=== PATIENT | female | born 1975 ===

== ENCOUNTER 2016-09-11 13:05 | Observation (INO) | payer MEDICAID ==
[2016-09-11] MEDS ORDERED: Sodium Chloride 0.9% 1,000 ML IV STA ×2 (13:51→17:11)
[2016-09-11 14:12] LABS: BASO % 0.3 % (0.0-2.0); EOS # 0.1 K/uL (0.0-0.7); EOS % 0.8 % (0.0-4.0); LYMPH % 12.7 % (20.0-40.0); MEAN CELL VOLUME 70.7 fl (81.0-99.0); MEAN CORPUSCULAR HEMOGLOBIN 22.7 pg (27.0-31.0); MEAN CORPUSCULAR HGB CONC 32.2 g/dL (33.0-37.0); MEAN PLATELET VOLUME 7.7 fl (7.2-11.7); MONO # 0.3 K/uL (0.0-0.8); MONO % 4.4 % (0.0-10.0); NEUT # 6.5 K/uL (1.8-7.0); NEUT % 81.8 % (50.0-75.0); RBC 3.97 Mil/uL (3.80-5.20); RED CELL DISTRIBUTION WIDTH 17.3 % (11.5-14.5)
[2016-09-11 14:26] LABS: ALB/GLOB RATIO 1.4 (1.0-2.1); ALBUMIN 4.7 g/dL (3.5-5.0); ALT/SGPT 51 U/L (9-52); AST/SGOT 27 U/L (14-36); BLOOD UREA NITROGEN 14 mg/dl (7-17); CALCIUM 9.6 mg/dL (8.4-10.2); GFR AFRICAN-AMERICAN > 60; GFR NON-AFRICAN AMERICAN > 60; LIPASE 99 U/L (23-300)
[2016-09-11 14:40] LABS: SQUAMOUS EPITHIAL 3 /hpf (0-5); URINE BACTERIA RARE (<OCC); URINE BILIRUBIN NEGATIVE (NEGATIVE); URINE BLOOD NEGATIVE (NEGATIVE); URINE CLARITY SLIGHTY-CLOUDY (Clear); URINE COLOR YELLOW (YELLOW); URINE GLUCOSE (UA) NEG (Normal); URINE LEUKOCYTE ESTERASE NEG Leu/uL (Negative); URINE NITRATE NEGATIVE (NEGATIVE); URINE PROTEIN 30 mg/dL (NEGATIVE); URINE UROBILINOGEN 0.2-1.0 mg/dL (0.2-1.0)
--- NOTE | 2016-09-11 14:40 | ED PDOC ---
HPI: Abdomen <James Jaimes - Last Filed: 09/11/16 17:17> Chief Complaint (Provider): Vomiting History Per: Patient, Family History/Exam Limitations: no limitations Onset/Duration Of Symptoms: Hrs (symptoms starts this morning) Outside of [place] travel?: No Current Symptoms Are (Timing): Still Present Severity: Mild Pain Scale Rating Of: 1 Location Of Pain/Discomfort: Diffuse Quality Of Discomfort: Other (feel a discomfort) Associated Symptoms: Nausea, Vomiting (describes 9 vomits in total). denies: Fever, Chills, Diarrhea, Back Pain, Chest Pain Exacerbating Factors: None Alleviating Factors: None Additional History Per: Patient, Family Abnormal Vaginal Bleeding: No <Star Benito - Last Filed: 09/11/16 17:39> <Sherry Heart - Last Filed: 09/11/16 17:50> Time Seen by Provider: 09/11/16 13:19 Chief Complaint (Nursing): Abdominal Pain Additional Complaint(s): CC: Vomiting. HPI: 41 yo F patient presents to the ED complaining of vomiting since this morning, she has 9 vomits in total, small, yellowish, without food or blood. Associated nausea, dizziness, generalized malaise and abdominal discomfort. Also refers flu-like symptoms 1 week ago improved. Denies fever, headache, burning sensation, no change in diet, no urinary difficulties. No recent travel outside country, nobody around with similar symptoms. ROS: negative except as HPI. PMH: Chronic anemia. PSH: 2 C- section ( first 2001, second 2003) Allergies: NKA Social: denies smoking, alcohol and drugs. Meds: none. (Star Benito) Supervising Attending Note - Supervising Attending Note The Documented history was done by the: Physician Dozer Operator The documented physical exam was done by the: Physician Dozer Operator The documented procedures were done by the: Physician Dozer Operator - Attestation: I have personally seen and examined this patient.: Yes I have fully participated in the care of the patient.: Yes I have reviewed all pertinent clinical information: Yes <Sherry Heart - Last Filed: 09/11/16 17:50> Past Medical History <James Jaimes - Last Filed: 09/11/16 17:17> Reviewed: Nursing Documentation, Vital Signs - Medical History PMH: Anemia - Surgical History Surgical History: (First on 2001, second 2003.) - Family History Family History: States: No Known Family Hx - Living Arrangements Living Arrangements: With Family - Social History Current smoker - smoking cessation education provided: No Alcohol: None Drugs: Denies <Star Benito - Last Filed: 09/11/16 17:39> <HeartSherry F - Last Filed: 09/11/16 17:50> Vital Signs: Last Vital Signs Temp 99.6 F 09/11/16 17:47 Pulse 78 09/11/16 17:47 Resp 16 09/11/16 17:47 BP 119/56 L 09/11/16 17:47 Pulse Ox 100 09/11/16 17:47 - Home Medications Home Medications: Ambulatory Orders Medication Instructions Recorded No Known Home Med 09/11/16 - Allergies Allergies/Adverse Reactions: Allergies Allergy/AdvReac Type Severity Reaction Status Date / Time No Known Allergies Allergy Verified 09/11/16 13:10 Review of Systems ROS Statement: Except As Marked, All Systems Reviewed And Found Negative Constitutional: Positive for: Weakness, Malaise. Negative for: Fever, Chills Eyes: Negative for: Pain, Vision Change ENT: Positive for: Other. Negative for: Ear Pain, Mouth Pain, Mouth Swelling Cardiovascular: Negative for: Chest Pain, Palpitations, Edema Respiratory: Negative for: Cough, Shortness of Breath Gastrointestinal: Positive for: Nausea, Vomiting, Other (Abdominal discomfort). Negative for: Diarrhea Genitourinary Female: Negative for: Dysuria, Vaginal Discharge, Pelvic Pain Musculoskeletal: Negative for: Neck Pain, Back Pain, Leg Pain Skin: Positive for: Other (normal color) Neurological: Negative for: Weakness, Numbness, Incoordination, Change in Speech , Confusion, Altered Mental Status, Headache Psych: Negative for: Anxiety <Star Benito - Last Filed: 09/11/16 17:39> Physical Exam - Reviewed Nursing Documentation Reviewed: Yes Vital Signs Reviewed: Yes - Physical Exam Appears: Positive for: Well, No Acute Distress Head Exam: Positive for: ATRAUMATIC, NORMOCEPHALIC Skin: Positive for: Normal Color, Warm, Dry. Negative for: Diaphoresis Eye Exam: Positive for: Normal appearance, EOMI, PERRL ENT: Positive for: Normal ENT Inspection Neck: Positive for: Normal, Supple Cardiovascular/Chest: Positive for: Regular Rate, Rhythm. Negative for: Murmur Respiratory: Positive for: Normal Breath Sounds Pulses-Carotid (L): 2+ Pulses-Carotid (R): 2+ Pulses-Dorsalis Pedis (L): 2+ Pulses-Dorsalis Pedis (R): 2+ Pulses-Femoral (L): 2+ Pulses-Femoral (R): 2+ Pulses-Post. Tibialis (L): 2+ Pulses-Post. Tibialis (R): 2+ Pulses-Radial (L): 2+ Pulses-Radial (R): 2+ Gastrointestinal/Abdominal: Positive for: Bowel Sounds, Soft, Other (abdominal discomfort on RUQ). Negative for: Tenderness, Mass, Distended Back: Positive for: Normal Inspection Extremity: Positive for: Normal ROM, Capillary Refill (< 4 seconds.). Negative for: Tenderness, Pedal Edema, Calf Tenderness Neurologic/Psych: Positive for: Alert, algorithm developer II-XII, Oriented <Star Benito - Last Filed: 09/11/16 17:39> - Laboratory Results Result Diagrams: 09/11/16 14:04 09/11/16 14:04 <James Jaimes - Last Filed: 09/11/16 17:17> - Laboratory Results Result Diagrams: 09/11/16 14:04 09/11/16 14:04 Urine POC: Negative - ECG O2 Sat by Pulse Oximetry: 98 <Star Benito - Last Filed: 09/11/16 17:39> - Laboratory Results Result Diagrams: 09/11/16 14:04 09/11/16 14:04 <Sherry Heart - Last Filed: 09/11/16 17:50> - ECG Interpretation Of ECG: NSR @ 79, no ST-T changes. (Sherry Heart) Medical Decision Making <James Jaimes - Last Filed: 09/11/16 17:17> <Star Benito - Last Filed: 09/11/16 17:39> <Sherry Heart - Last Filed: 09/11/16 17:50> Medical Decision Making: Time: 15:00 Impression: 41 yo F patient presents to the ED complaining of vomiting since this morning. Plan: CBC PT PTT test, urine. Urinalysis. Urine dipstick. Abd/pelvis CT scan with contrast. IV NS. Metoclopramide IV. Zofran IV. Time 16:50 Impression: Reevaluated patient refers continuing vomiting, nausea and epigastric discomfort. Abdominal CAT Scan is normal. Plan: IV NS. Phenergan IV. EKG. CXR. Admit patient in observation. (Star Benito) Disposition - Patient ED Disposition Is Patient to be Admitted: Yes <James Jaimes - Last Filed: 09/11/16 17:17> Discussed With : Ashlee Navarro Doctor Will See Patient In The: Hospital - Disposition Disposition Time: 17:24 - Pt Status Changed To: Hospital Disposition Of: Observation - POA Present On Arrival: None <Star Benito - Last Filed: 09/11/16 17:39> <Sherry Heart - Last Filed: 09/11/16 17:50> - Clinical Impression Clinical Impression: Intractable cyclical vomiting with nausea - Disposition Condition: STABLE
[2016-09-11 14:54] LABS: PARTIAL THROMBOPLASTIN TIME 25.4 Seconds (25.6-37.1); PROTHROMBIN TIME 11.6 Seconds (9.8-13.1)
[2016-09-11] MEDS ORDERED: Iohexol 300 100 ML IJ ONE (15:57)
[2016-09-11] MEDS ORDERED: Sodium Chloride 0.9% 50 ML IV ONE (15:57)
--- NOTE | 2016-09-11 16:43 | CT ---
PROCEDURE: CT Abdomen and Pelvis with contrast HISTORY: LLQ pain. By history, negative test (concurrent with this examination). COMPARISON: None. TECHNIQUE: Contrast dose: 90 cc Omnipaque 300 Radiation dose: Total exam DLP = 540.41 mGy-cm. This CT exam was performed using one or more of the following dose reduction techniques: Automated exposure control, adjustment of the mA and/or kV according to patient size, and/or use of iterative reconstruction technique. FINDINGS: LOWER THORAX: Unremarkable. LIVER: Unremarkable. No gross lesion or ductal dilatation. GALLBLADDER AND BILE DUCTS: Unremarkable. PANCREAS: Unremarkable. No gross lesion or ductal dilatation. SPLEEN: Unremarkable. ADRENALS: Unremarkable. No mass. KIDNEYS AND URETERS: Unremarkable. No hydronephrosis. No solid mass. VASCULATURE: Unremarkable. No aortic aneurysm. BOWEL: Diverticulosis without an acute inflammatory component or other associated pathologic process. APPENDIX: Normal appendix. PERITONEUM: Unremarkable. No free fluid. No free air. LYMPH NODES: Unremarkable. No enlarged lymph nodes. BLADDER: Unremarkable. REPRODUCTIVE: Enlarged uterus. Unremarkable left adnexal region as visualized. Right adnexal cysts/ follicles. BONES: No acute fracture. OTHER FINDINGS: None. IMPRESSION: No acute findings related to/accounting for the clinical presentation. Additional benign and/or incidental findings described above.
--- NOTE | 2016-09-11 17:42 | RAD ---
HISTORY: Admission COMPARISON: No prior. TECHNIQUE: Chest PA and lateral FINDINGS: LUNGS: The lungs are well inflated and clear. PLEURA: No significant pleural effusion identified. No pneumothorax apparent. CARDIOVASCULAR: Normal. OSSEOUS STRUCTURES: No significant abnormalities. VISUALIZED UPPER ABDOMEN: Normal. OTHER FINDINGS: None. IMPRESSION: No active pulmonary disease.
[2016-09-12] MEDS: Dextrose 5%/0.9% NS 1,000 ML IV SCH ×2 (03:25→13:52)
[2016-09-12 06:57] LABS: HEMOGLOBIN 7.7 g/dL (12.0-16.0); MEAN CELL VOLUME 71.5 fl (81.0-99.0); MEAN CORPUSCULAR HEMOGLOBIN 22.5 pg (27.0-31.0); MEAN CORPUSCULAR HGB CONC 31.5 g/dL (33.0-37.0); RBC 3.4 Mil/uL (3.80-5.20); RED CELL DISTRIBUTION WIDTH 17.4 % (11.5-14.5); WHITE BLOOD COUNT 7.6 K/uL (4.8-10.8)
[2016-09-12 07:08] LABS: ALB/GLOB RATIO 1.3 (1.0-2.1); ALBUMIN 3.7 g/dL (3.5-5.0); ALT/SGPT 40 U/L (9-52); AST/SGOT 21 U/L (14-36); BLOOD UREA NITROGEN 10 mg/dl (7-17); CALCIUM 8.4 mg/dL (8.4-10.2); GFR AFRICAN-AMERICAN > 60; GFR NON-AFRICAN AMERICAN > 60
[2016-09-12 08:25] VITALS: O2SAT 97
[2016-09-12] MEDS ORDERED: metroNIDAZOLE 500mg/100ml NS 100 ML IVPB SCH (09:00)
[2016-09-12 10:36] LABS: IRON 16 ug/dL (37-170)
[2016-09-12 10:45] LABS: % IRON SATURATION 4 % (20-55); TOTAL IRON BINDING CAPACITY 381 ug/dL (250-450)
[2016-09-12 11:01] LABS: FERRITIN 7.2 ng/mL
[2016-09-12] MEDS: Enoxaparin 40 mg Syringe SC SCH ×2 (11:49→11:50)
--- NOTE | 2016-09-12 14:52 | CARD ---
APPROVED REPORT EKG Measurement Heart [id number] <Conclusion> Normal sinus rhythm Normal ECG
[2016-09-12 16:27] VITALS: BP 96/58; PULSE 82; RESP 17; TEMP 98.9
[2016-09-12 19:44] LABS: HEMOGLOBIN 9.1 g/dL (12.0-16.0); MEAN CELL VOLUME 73.7 fl (81.0-99.0); MEAN CORPUSCULAR HEMOGLOBIN 23.1 pg (27.0-31.0); MEAN CORPUSCULAR HGB CONC 31.3 g/dL (33.0-37.0); RBC 3.96 Mil/uL (3.80-5.20); RED CELL DISTRIBUTION WIDTH 18.6 % (11.5-14.5); WHITE BLOOD COUNT 7.7 K/uL (4.8-10.8)
--- NOTE | 2016-09-12 23:15 | CP.PCM.HP ---
History of Present Illness - History of Present Illness History of Present Illness: HPI: 41 yo F patient presents to the ED complaining of vomiting since this morning, she has 9 vomits in total, small, yellowish, without food or blood. Associated nausea, dizziness, generalized malaise and abdominal discomfort. Also refers flu-like symptoms 1 week ago improved. Denies fever, headache, burning sensation, no change in diet, ,no sick contacts . No recent travel outside country, nobody around with similar symptoms. blood work found to be hb-9 - 7.7 after fluids ,k-3.5 , notes she has have hx of heavy vaginal bleeds. Present on Admission - Present on Admission Any Indicators Present on Admission: No Review of Systems - Review of Systems Review of Systems: Constitutional: Positive for: Weakness, Malaise. Negative for: Fever, Chills Eyes: Negative for: Pain, Vision Change ENT: Positive for: Other. Negative for: Ear Pain, Mouth Pain, Mouth Swelling Cardiovascular: Negative for: Chest Pain, Palpitations, Edema Respiratory: Negative for: Cough, Shortness of Breath Gastrointestinal: Positive for: Nausea, Vomiting, Other (Abdominal discomfort). Negative for: Diarrhea Genitourinary Female: Negative for: Dysuria, Vaginal Discharge, Pelvic Pain Musculoskeletal: Negative for: Neck Pain, Back Pain, Leg Pain Skin: Positive for: Other (normal color) Neurological: Negative for: Weakness, Numbness, Incoordination, Change in Speech , Confusion, Altered Mental Status, Headache Psych: Negative for: Anxiety Past Patient History - Past Medical History & Family History Past Medical History?: Yes - Past Social History Smoking Status: Never Smoked - CARDIAC Hx Cardiac Disorders: No - PULMONARY Hx Respiratory Disorders: No - NEUROLOGICAL Hx Neurological Disorder: No - RENAL Hx Chronic Kidney Disease: No - ENDOCRINE/METABOLIC Hx Endocrine Disorders: No - HEMATOLOGICAL/ONCOLOGICAL Hx Blood Disorders: Yes Hx Anemia: Yes - INTEGUMENTARY Hx Dermatological Problems: No - MUSCULOSKELETAL/RHEUMATOLOGICAL Hx Musculoskeletal Disorders: No Hx Falls: No - GASTROINTESTINAL Hx Gastrointestinal Disorders: No - GENITOURINARY/GYNECOLOGICAL Hx Genitourinary Disorders: No - PSYCHIATRIC Hx Psychophysiologic Disorder: No Hx Substance Use: No - SURGICAL HISTORY Hx Section: Yes (x2) - ANESTHESIA Hx Anesthesia: Yes Hx Anesthesia Reactions: No Hx Malignant Hyperthermia: No Meds Home Medications: Home Medication List Medication Instructions Recorded Confirmed Type Ferrous Sulfate [Feosol] 325 mg PO BID #60 tab 09/12/16 Rx Allergies/Adverse Reactions: Allergies Allergy/AdvReac Type Severity Reaction Status Date / Time No Known Allergies Allergy Verified 09/11/16 13:10 Physical Exam - Additional Findings Additional findings: Appears: Positive for: Well, No Acute Distress Head Exam: Positive for: ATRAUMATIC, NORMOCEPHALIC Skin: Positive for: pallor , Warm, Dry. Negative for: Diaphoresis Eye Exam: Positive for: Normal appearance, EOMI, PERRL ENT: Positive for: Normal ENT Inspection Neck: Positive for: Normal, Supple Cardiovascular/Chest: Positive for: Regular Rate, Rhythm. Negative for: Murmur Respiratory: Positive for: Normal Breath Sounds Gastrointestinal/Abdominal: Positive for: Bowel Sounds, Soft, Other (abdominal discomfort on RUQ). Negative for: Tenderness, Mass, Distended Back: Positive for: Normal Inspection Extremity: Positive for: Normal ROM, Capillary Refill (< 4 seconds.). Negative for: Tenderness, Pedal Edema, Calf Tenderness Neurologic/Psych: Positive for: Alert, mechanical oxidizer II-XII, Oriented Results - Vital Signs Recent Vital Signs: Last Vital Signs Temp 98.9 F 09/12/16 16:08 Pulse 82 09/12/16 16:08 Resp 17 09/12/16 16:08 BP 96/58 L 09/12/16 16:08 Pulse Ox 97 09/12/16 16:08 - Labs Result Diagrams: 09/12/16 19:15 09/12/16 06:05 Labs: Laboratory Results - last 24 hr 09/12/16 09/12/16 09/12/16 06:00 06:00 06:05 WBC 7.6 RBC 3.40 L Hgb 7.7 L Hct 24.3 L MCV 71.5 L MCH 22.5 L MCHC 31.5 L RDW 17.4 H Plt Count 194 Sodium Potassium Chloride Carbon Dioxide Anion Gap BUN Creatinine Est GFR ( Amer) Est GFR (Non-Af Amer) Random Glucose Calcium Iron 16 L TIBC 381 % Saturation 4 L Ferritin 7.2 Total Bilirubin AST ALT Alkaline Phosphatase Total Protein Albumin Globulin Albumin/Globulin Ratio Vitamin B12 368 Folate 12.0 Blood Type Blood Type Confirm Antibody Screen Crossmatch BBK History Checked 09/12/16 09/12/16 09/12/16 06:05 11:15 11:50 WBC RBC Hgb Hct MCV MCH MCHC RDW Plt Count Sodium 141 Potassium 3.5 L Chloride 107 Carbon Dioxide 26 Anion Gap 12 BUN 10 Creatinine 0.6 L Est GFR ( Amer) > 60 Est GFR (Non-Af Amer) > 60 Random Glucose 117 H Calcium 8.4 Iron TIBC % Saturation Ferritin Total Bilirubin 0.3 AST 21 ALT 40 Alkaline Phosphatase 54 Total Protein 6.5 Albumin 3.7 Globulin 2.8 Albumin/Globulin Ratio 1.3 Vitamin B12 Folate Blood Type O POSITIVE Blood Type Confirm O POSITIVE Antibody Screen Negative Crossmatch See Detail BBK History Checked No verified bt 09/12/16 19:15 WBC 7.7 RBC 3.96 Hgb 9.1 L Hct 29.2 L MCV 73.7 L D MCH 23.1 L MCHC 31.3 L RDW 18.6 H Plt Count 188 Sodium Potassium Chloride Carbon Dioxide Anion Gap BUN Creatinine Est GFR ( Amer) Est GFR (Non-Af Amer) Random Glucose Calcium Iron TIBC % Saturation Ferritin Total Bilirubin AST ALT Alkaline Phosphatase Total Protein Albumin Globulin Albumin/Globulin Ratio Vitamin B12 Folate Blood Type Blood Type Confirm Antibody Screen Crossmatch BBK History Checked - Imaging and Cardiology CT scan - abdomen Status: Report reviewed by me Chest x-ray Status: Report reviewed by me Assessment & Plan (1) Acute gastroenteritis Status: Acute Comment: feeling better. no diarrhea\vomiting. IVF. iv falgyl (2) Anemia due to blood loss Status: Chronic Comment: tx 2 units of PRBC. advise tp f\u obgyn Decision To Admit - Pt Status Changed To: Hospital Disposition Of: Observation - . Bed Request Type: Med/Surg Admitting Physician: Ashlee Navarro
--- NOTE | 2016-09-21 16:18 | CP.PCM.DIS ---
Provider - Provider Date of Admission: 09/11/16 17:11 Attending physician: Ashlee Navarro MD Time Spent in preparation of Discharge (in minutes): 10 Diagnosis - Discharge Diagnosis (1) Acute gastroenteritis Status: Acute (2) Anemia due to blood loss Status: Chronic Hospital Course - Lab Results Lab Results: Most Recent Lab Values WBC 7.7 K/uL (4.8-10.8) 09/12/16 19:15 RBC 3.96 Mil/uL (3.80-5.20) 09/12/16 19:15 Hgb 9.1 g/dL (12.0-16.0) L 09/12/16 19:15 Hct 29.2 % (34.0-47.0) L 09/12/16 19:15 MCV 73.7 fl (81.0-99.0) L D 09/12/16 19:15 MCH 23.1 pg (27.0-31.0) L 09/12/16 19:15 MCHC 31.3 g/dL (33.0-37.0) L 09/12/16 19:15 RDW 18.6 % (11.5-14.5) H 09/12/16 19:15 Plt Count 188 K/uL (130-400) 09/12/16 19:15 MPV 7.7 fl (7.2-11.7) 09/11/16 14:04 Neut % (Auto) 81.8 % (50.0-75.0) H 09/11/16 14:04 Lymph % (Auto) 12.7 % (20.0-40.0) L 09/11/16 14:04 [place] % (Auto) 4.4 % (0.0-10.0) 09/11/16 14:04 Eos % (Auto) 0.8 % (0.0-4.0) 09/11/16 14:04 Baso % (Auto) 0.3 % (0.0-2.0) 09/11/16 14:04 Neut # 6.5 K/uL (1.8-7.0) 09/11/16 14:04 Lymph # 1.0 K/uL (1.0-4.3) 09/11/16 14:04 [place] # 0.3 K/uL (0.0-0.8) 09/11/16 14:04 Eos # 0.1 K/uL (0.0-0.7) 09/11/16 14:04 Baso # 0.0 K/uL (0.0-0.2) 09/11/16 14:04 PT 11.6 Seconds (9.8-13.1) 09/11/16 14:04 INR 1.0 (0.9-1.2) 09/11/16 14:04 APTT 25.4 Seconds (25.6-37.1) L 09/11/16 14:04 Sodium 141 mmol/l (132-148) 09/12/16 06:05 Potassium 3.5 MMOL/L (3.6-5.0) L 09/12/16 06:05 Chloride 107 mmol/L (98-107) 09/12/16 06:05 Carbon Dioxide 26 mmol/L (22-30) 09/12/16 06:05 Anion Gap 12 (10-20) 09/12/16 06:05 BUN 10 mg/dl (7-17) 09/12/16 06:05 Creatinine 0.6 mg/dL (0.7-1.2) L 09/12/16 06:05 Est GFR ( Amer) > 60 09/12/16 06:05 Est GFR (Non-Af Amer) > 60 09/12/16 06:05 Random Glucose 117 mg/dL (65-105) H 09/12/16 06:05 Calcium 8.4 mg/dL (8.4-10.2) 09/12/16 06:05 Iron 16 ug/dL (37-170) L 09/12/16 06:00 TIBC 381 ug/dL (250-450) 09/12/16 06:00 % Saturation 4 % (20-55) L 09/12/16 06:00 Ferritin 7.2 ng/mL 09/12/16 06:00 Total Bilirubin 0.3 mg/dl (0.2-1.3) 09/12/16 06:05 AST 21 U/L (14-36) 09/12/16 06:05 ALT 40 U/L (9-52) 09/12/16 06:05 Alkaline Phosphatase 54 U/L (38-126) 09/12/16 06:05 Total Protein 6.5 G/DL (6.3-8.2) 09/12/16 06:05 Albumin 3.7 g/dL (3.5-5.0) 09/12/16 06:05 Globulin 2.8 gm/dL (2.2-3.9) 09/12/16 06:05 Albumin/Globulin Ratio 1.3 (1.0-2.1) 09/12/16 06:05 Lipase 99 U/L (23-300) 09/11/16 14:04 Vitamin B12 368 pg/mL (239-931) 09/12/16 06:00 Folate 12.0 ng/mL 09/12/16 06:00 Urine Color Yellow (YELLOW) 09/11/16 14:04 Urine Clarity Slighty-cloudy (Clear) 09/11/16 14:04 Urine pH 6.0 (5.0-8.0) 09/11/16 14:04 Ur Specific [place] 1.021 (1.003-1.030) 09/11/16 14:04 Urine Protein 30 mg/dL (NEGATIVE) 09/11/16 14:04 Urine Glucose (UA) Neg mg/dL (Normal) 09/11/16 14:04 Urine Ketones Negative mg/dL (NEGATIVE) 09/11/16 14:04 Urine Blood Negative (NEGATIVE) 09/11/16 14:04 Urine Nitrate Negative (NEGATIVE) 09/11/16 14:04 Urine Bilirubin Negative (NEGATIVE) 09/11/16 14:04 Urine Urobilinogen 0.2-1.0 mg/dL (0.2-1.0) 09/11/16 14:04 Ur Leukocyte Esterase Neg [place]/uL (Negative) 09/11/16 14:04 Urine RBC (Auto) 3 /hpf (0-3) 09/11/16 14:04 Urine Microscopic WBC 1 /hpf (0-5) 09/11/16 14:04 Ur Squamous Epith Cells 3 /hpf (0-5) 09/11/16 14:04 Urine Bacteria Rare (<OCC) 09/11/16 14:04 Blood Type O POSITIVE 09/12/16 11:15 Blood Type Confirm O POSITIVE 09/12/16 11:50 Antibody Screen Negative 09/12/16 11:15 Crossmatch See Detail 09/12/16 11:15 BBK History Checked No verified bt 09/12/16 11:15 - Hospital Course Hospital Course: s\p PRBC-2 units hb-9 advise iron pills with colace f\u obgyn bland diet Discharge Exam - Head Exam Head Exam: ATRAUMATIC, NORMOCEPHALIC Discharge Plan - Discharge Medications Prescriptions: Ferrous Sulfate [Feosol] 325 mg PO BID #60 tab - Follow Up Plan Condition: STABLE Disposition: HOME/ ROUTINE Instructions: Iron Deficiency Anemia (DC) Additional Instructions: Follow -up with Dr. Navarro in 1 week - [facility] call for appointment
== END 2016-09-12 21:03 | disposition home or self-care (01) ==
LOC: H.ER 13:05 → H.MEDSURG1 17:11
PROVIDERS: ADMIT Internal Medicine; ATTEND Internal Medicine
DX: G43.A1 Cyclical vomiting, in migraine, intractable (principal); D64.9 Anemia, unspecified